=== PATIENT | male | born 1985 | race Caucasian/White ===

== ENCOUNTER 2020-09-12 20:57 | Emergency (ER) | payer OTHER ==
[~2020-09-12] VITALS: Ht 172.7 cm; Wt 79.4 kg
[2020-09-12] MEDS ORDERED: BACITO TOP (22:04)
== END 2020-09-12 22:13 | disposition home or self-care (01) ==
LOC: ER 20:57
DX: T22.111A Burn of first degree of right forearm, initial encounter (principal); X13.1XXA Other contact with steam and other hot vapors, initial encounter; Y92.89 Other specified places as the place of occurrence of the external cause; Y99.0 Civilian activity done for income or pay
CPT/HCPCS: 16020; 90471; 90714; 99283-25